=== PATIENT | female | born 1955 | race Two or more races ===

== ENCOUNTER 2025-09-19 04:25 | Inpatient (IN) | payer MEDICAID ==
[~2025-09-19] VITALS: Ht 152.4 cm; Wt 68.0 kg
--- NOTE | 2025-09-19 04:46 | ED.PDOC ---
History of Present Illness HPI Comments 70-year-old female, with a history of asthma, presents to the ED with a chief complaint of inability to swallow as of last night. Patient has NKA but does use an inhaler at home for Asthma. Patient has no further complaints at this time and denies symptoms of ear pain, throat pain, fever, chills, N/V/D, or weakness. REVIEW OF SYSTEMS: General: No fever, no chills, or fatigue HEENT: + swollen lymph nodes. No sore throat, no earache, no congestion, no neck pain. Cardiac: No chest pain. No palpitations. Lungs: No shortness of breath, no cough. GI: No nausea, no vomiting, no diarrhea, no constipation, no abdominal pain : No dysuria, frequency, or urgency. No hematuria. Musculoskeletal: No joint pain , no joint swelling, no extremity edema. Skin: No rash, no itching. Neuro: No headache, no dizziness, no weakness (And as sated in HPI) PHYSICAL EXAM: General: Awake, alert and oriented. No acute distress. Skin: Skin in warm, dry and intact. Appropriate color for ethnicity. HEENT: + swollen lymph nodes. + posterior pharyngeal edema. No stridor, no drooling, managing secretions. The head is normocephalic and atraumatic. Conju nctivae are clear without exudates or hemorrhage. Sclera is non-icteric. Eyelids are normal in appearance without swelling or lesions. Neck: The neck is supple with normal range of motion. No JVD. Cardiac: Heart rate and rhythm are normal. No murmurs, gallops, or rubs are auscultated. Respiratory: No signs of respiratory distress. Lung sounds are clear in all lobes bilaterally without rales, rhonchi, or wheezes. Abdominal: Abdomen is soft, non-tender without distention, guarding or rigidity. Bowel sounds are present and normoactive in all four quadrants. Extremities: Lower extremities without edema. Neurological: The patient is awake, alert and oriented to person, place, and time with normal speech. Speech is clear. There is no facial asymmetry. Psychiatric: Appropriate mood and affect. Good judgement and insight. Time Seen by MD: 04:37 Reviewed Notes: Medications, Allergies Allergies: Coded Allergies: NO KNOWN ALLERGIES (Unverified , 09/19/25) Information Source: Patient Mode of Arrival: Ambulatory Severity: Moderate Timing: Hours Duration: Since onset Past Medical History PAST MEDICAL HISTORY: Asthma Surgical History: Denies all surgeries INSURANCE EXECUTIVE History: No Pertinent INSURANCE EXECUTIVE History Social History Smoker: Non-Smoker Alcohol: Denies ETOH Use Drugs: Denies Drug Use Lives In: Home Was a procedure done? Was a procedure done?: No Differential Dx Considerations may include: Differential diagnoses considered includebut arenot limited to acute Bronchitis, Asthma, COPD, Pneumothorax, PE, CHF, Pulmonary HTN, Anemia, CO Poisoning, Methemoglobinemia, Hyperventilation, Metabolic Acidosis, Pulmonary E cristian, Pneumonia, ACS, Pericardial Tamponade, Anxiety, other X-Ray, Labs, Meds, VS Vital Signs Date Time Temp Pulse Resp B/P (MAP) Pulse Ox O2 Delivery O2 Flow Rate FiO2 09/19/25 05:39 Room Air* 0 21 09/19/25 05:10 98.6 106 18 142/68 (92) 96 98.6 09/19/25 04:42 16 99 Room Air* 0 21 09/19/25 04:42 97.2 114 16 178/90 99 97.2 Current Medications Medications (Trade) Dose Ordered Sig/Ravi Route Start Time Stop Time Status Last Admin Methylprednisolone Sodium Succinate (Solu Medrol) 80 mg ONCE ONCE IV 09/19/25 04:45 09/19/25 04:46 DC 09/19/25 05:28 Time of 1ST Reevaluation: 05:18 Reevaluation 1ST: Unchanged Patient Education/Counseling: Diagnosis, Treatment Family Education/Counseling: No Family Present SEPSIS Sepsis Screen Physician Orders Neck Without Contrast (09/19/25 04:41) Rapid Strep Screen - Throat (09/19/25 04:45) Basic Metabolic Panel (09/19/25 04:45) Complete Blood Count (09/19/25 04:45) Vital Signs Date Time Temp Pulse Resp B/P (MAP) Pulse Ox O2 Delivery O2 Flow Rate FiO2 09/19/25 05:39 Room Air* 0 21 09/19/25 05:10 98.6 106 18 142/68 (92) 96 98.6 09/19/25 04:42 16 99 Room Air* 0 21 09/19/25 04:42 97.2 114 16 178/90 99 97.2 Medications Medications Dose Ordered Sig/Ravi Route Start Time Stop Time Status Last Admin Dose Admin Methylprednisolone Sodium Succinate 80 mg ONCE ONCE IV 09/19/25 04:45 09/19/25 04:46 DC 09/19/25 05:28 Departure 1 Departure Time of Disposition: 05:54 Impression: Primary Impression: Difficulty swallowing Additional Impression: Difficulty swallowing liquids Disposition: 09 ADMITTED INPATIENT Comments 70 female with sudden onset, worsening difficulty swallowing. She is having difficulty swallowing her saliva. IV steroid administered. Currently no stridor or airway compromise on exam. CT neck shows no abscess. Given rapid onset of symptoms patient admitted for further observation. Critical Care Note Critical Care Time?: No Stability Stability form required: No Heart Score Heart Score: Heart Score Response (Comments) Value History N/A 0 EKG N/A 0 Age N/A 0 Risk Factors N/A 0 Troponin N/A 0 Total 0 I personally scribed for AMELIA SANTORO MD ([email or web address]) on 09/19/25 at 04:46. Electronically submitted by Laurie Story ([email or web address]). AMELIA SANTORO MD Sep 19, 2025 04:46
[2025-09-19] MEDS: methylPREDNISolone SOD SUCC 125 MG/2 ML VL IV ONE (05:28)
--- NOTE | 2025-09-19 05:52 | DVH ---
Accession Number: [id number] CLINICAL HISTORY: Difficulty swallowing, rule out abscess. COMPARISON: None. TECHNIQUE: CT scan of the neck was performed without intravenous contrast. Coronal sagittal reformatted images are submitted. Radiation Dose Information: CT Dose: CTDI volume is 22.99 mGy. Dose-length product is 592.56 mGy*cm FINDINGS: Evaluation is limited without intravenous contrast. The nasopharynx, oropharynx, hypopharynx, esophagus, and larynx demonstrate no space-occupying lesion or obvious fluid collection. The submandibular and sublingual glands are symmetric in size. No calcification. Subcentimeter nodular foci noted in both parotid glands which may reflect Subcentimeter lymph nodes. The visualized oral tongue, tongue base, and floor of mouth regions appear to be grossly unremarkable within the limitations of unenhanced CT. No cervical lymphadenopathy. Nodular thyroid. Bones are intact. IMPRESSION: 1. Limited noncontrast study. No inflammatory changes or obvious fluid collection. 2. Nodular thyroid can be further evaluated with ultrasound.
[2025-09-19 07:23] LABS: Hemoglobin 13.5 g/dL (12.2-16.2); Nucleated Red Blood Cells % 0.0 %
[2025-09-19 07:26] LABS: Hematocrit 41.3 % (36.0-46.0); Mean Corpuscular Hemoglobin 24.8 pg (28.0-32.0); Mean Corpuscular Volume 76.2 fL (80.0-100.0)
[2025-09-19 07:28] LABS: Anion Gap 10 (5-15); Calcium 9.9 mg/dL (8.7-10.4); Carbon Dioxide 28 mmol/L (20-31)
[2025-09-19 07:30] LABS: Chloride 96 mmol/L (98-107); Potassium 3.4 mmol/L (3.5-5.1); Sodium 134 mmol/L (136-145)
[2025-09-19 07:33] LABS: BUN/Creatinine Ratio 19.5 (10.0-20.0); Blood Urea Nitrogen 8 mg/dL (9-23); Glucose 150 mg/dL (74-106)
[2025-09-19 07:58] LABS: Rapid Strep A Screen-Throat Negative
--- NOTE | 2025-09-19 08:35 | DVHHP2 ---
History of Present Illness Reason for Visit: Difficulty swallowing History of Present Illness Yung Gracia is a 70-year-old female with past medical history of asthma, diabetes, hypertension, and hyperlipidemia, who came to the hospital for difficulty swallowing. Patient states that she has had an upset stomach with nausea and diarrhea for the last 2 days as well as headaches. She states that last night she began to have a sore throat. She then woke up about early this morning with difficulty swallowing her own spit. This prompted her to come to the hospital. The ER gave her IV steroids that she said seems to be helping. She was able to pass a nursing swallow evaluation. Cardiovascular: HTN, hyperipidemia Pulmonary: Asthma Endocrine: Diabetes Past Surgical History: Appendectomy, Hernia Repair, Other (left breast lumpectomy) Smoke: No ALCOHOL: none Drugs: None Lives: with Family Domestic Violence: Neg Review of Systems Constitutional: Yes: Malaise, Other (Headache); No: Fever, Chills, Sweats, Weakness Eyes: No: Pain, Vision change, Conjunctivae inflammation, Eyelid inflammation, Other, Redness ENT: Throat pain, Throat swelling; No: Ear pain, Ear discharge, Nose pain, Nose discharge, Nose congestion, Mouth pain, Mouth swelling, Other Respiratory: No: Cough, Dry, Shortness of breath, SOB with excertion, Wheezing, Hemoptysis, Pleuritic Pain, Sputum, Wheezing, Other Cardiovascular: No: Chest Pain, Palpitations, Orthopnea, Paroxysmal Noc. Dyspnea, Edema, Lt Headedness, Other Gastrointestinal: Nausea, Diarrhea; No: Vomiting, Abdominal Pain, Constipation, Melena, Hematochezia, Other Genitourinary: No Dysuria, No Frequency, No Incontinence, No Hematuria, No Retention, No Other Musculoskeletal: No: other, neck pain, shoulder pain, arm pain, back pain, hand pain, leg pain, foot pain Skin: No: Rash, Lesions, Jaundice, Bruising, Other Neurological: No: Weakness, Numbness, Incoordination, Change in speech, Confusion, Seizures, Other Allergies: Coded Allergies: NO KNOWN ALLERGIES (Unverified , 09/19/25) Exam Vital Signs Vital Signs Date Time Temp Pulse Resp B/P (MAP) Pulse Ox O2 Delivery O2 Flow Rate FiO2 09/19/25 07:36 98.3 97 16 151/81 (104) 98 98.3 09/19/25 05:39 Room Air* 0 21 General Appearance: Alert, Oriented X3, Cooperative, mild distress HEENT: Atraumatic, PERRLA, Other (Mucous membr dry) Respiratory: Clear to auscultation, Normal air movement Cardiovascular: Normal S1, Normal S2, Other (ST-SR) Abdominal: Normal bowel sounds, Soft, No tenderness, No hepatospenomegaly Extremities: No clubbing, No cyanosis, No edema, Normal pulses, No tenderness/swelling Skin: No rashes, No breakdown, No significant lesion Neuro: Normal gait, Normal speech, Strength at 5/5 X4 ext, Normal tone, S ensation intact Psych/Mental Status: Mental status NL, Mood NL Labs/Xrays Labs Test 09/19/25 07:26 09/19/25 06:58 Range/Units Group A Streptococcus Rapid Negative White Blood Count 12.0 H 4.4-10.8 10^3/uL Red Blood Count 5.43 H 4.0-5.20 10^6/uL Hemoglobin 13.5 12.2-16.2 g/dL Hematocrit 41.3 36.0-46.0 % Mean Corpuscular Volume 76.2 L 80.0-100.0 fL Mean Corpuscular Hemoglobin 24.8 L 28.0-32.0 pg Mean Corpuscular Hemoglobin Concent 32.6 32.0-36.0 g/dL Red Cell Distribution Width 15.1 H 11.8-14.3 % Platelet Count 327 140-450 10^3/uL Mean Platelet Volume 7.1 6.9-10.8 fL Neutrophils (%) (Auto) 83.7 H 37.0-80.0 % Lymphocytes (%) (Auto) 12.6 10.0-50.0 % Monocytes (%) (Auto) 2.8 0.0-12.0 % Eosinophils (%) (Auto) 0.2 0.0-7.0 % Basophils (%) (Auto) 0.7 0.0-2.0 % Neutrophils # (Auto) 10.1 H 1.6-8.6 10 ^3/uL Lymphocytes # (Auto) 1.5 0.4-5.4 10 ^3/uL Monocytes # (Auto) 0.3 0-1.3 10 ^3/uL Eosinophils # (Auto) 0 0-0.8 10 ^3/uL Basophils # (Auto) 0.1 0-0.2 10 ^3/uL Nucleated Red Blood Cells 0.0 % Sodium Level 134 L 136-145 mmol/L Potassium Level 3.4 L 3.5-5.1 mmol/L Chloride Level 96 L 98-107 mmol/L Carbon Dioxide Level 28 20-31 mmol/L Anion Gap 10 5-15 Blood Urea Nitrogen 8 L 9-23 mg/dL Creatinine 0.41 L 0.550-1.02 mg/dL Glomerular Filtration Rate Calc 106 >90 mL/min BUN/Creatinine Ratio 19.5 10.0-20.0 Serum Glucose 150 H 74-106 mg/dL Calcium Level 9.9 8.7-10.4 mg/dL TECHNIQUE: CT scan of the neck was performed without intravenous contrast. FINDINGS: Evaluation is limited without intravenous contrast. The nasopharynx, oropharynx, hypopharynx, esophagus, and larynx demonstrate no space-occupying lesion or obvious fluid collection. The submandibular and sublingual glands are symmetric in size. No calcification. Subcentimeter nodular foci noted in both parotid glands which may reflect Subcentimeter lymph nodes. The visualized oral tongue, tongue base, and floor of mouth regions appear to be grossly unremarkable within the limitations of unenhanced CT. No cervical lymphadenopathy. Nodular thyroid. Bones are intact. IMPRESSION: 1. Limited noncontrast study. No inflammatory changes or obvious fluid collection. 2. Nodular thyroid can be further evaluated with ultrasound. SEPSIS Sepsis Screen Date sepsis recognized/suspect: Sep 19, 2025 Time Sepsis recognized/suspect: 042 Recent Procedure: No On Antibiotic Therapy: No Respiratory Rate >20: No Heart Rate >90: Yes Temp<36 C (96.8 F) or >38.3 C: No SBP <90 or MAP <65 mmHG: No New Acute Mental Status Change: No Is the patient on CPAP, BIPAP,: No Physician Orders Neck Without Contrast (09/19/25 04:41) Vital Signs Q1HR (09/19/25 05:56) Blood Pressure (09/19/25 ) Blood Pressure (09/20/25 ) Notify Md If Abnormal Vs (09/19/25 05:56) Agricultural Service Worker (09/19/25 ) Saline Lock (09/19/25 05:56) Continous Pulse Oximetry (09/19/25 05:56) Oxygen (09/19/25 ) Titrate Oxygen (09/19/25 05:56) Vital Signs Q1HR (09/19/25 05:56) Notify Md If Abnormal Vs (09/19/25 05:56) Vital Signs Date Time Temp Pulse Resp B/P (MAP) Pulse Ox O2 Delivery O2 Flow Rate FiO2 09/19/25 07:36 98.3 97 16 151/81 (104) 98 98.3 09/19/25 05:39 Room Air* 0 21 09/19/25 05:10 98.6 106 18 142/68 (92) 96 98.6 09/19/25 04:42 16 99 Room Air* 0 21 09/19/25 04:42 97.2 114 16 178/90 99 97.2 Laboratory Tests Test 09/19/25 06:58 White Blood Count 12.0 10^3/uL (4.4-10.8) H Medications Medications Dose Ordered Sig/Ravi Route Start Time Stop Time Status Last Admin Dose Admin Methylprednisolone Sodium Succinate 80 mg ONCE ONCE IV 09/19/25 04:45 09/19/25 04:46 DC 09/19/25 05:28 80 MG Assessment/Plan Assessment/Plan Assessment: Difficulty swallowing liquids, Thyroid nodules, Asthma, Diabetes, Hypertension, Hyperlipidemia, Plan: Admit to Med-Surg, IV antibiotics, IV steroids, IV hydration, Accu checks with sliding scale insulin, Home medications reconciled, Plan discussed with: Patient Date of Service: Sep 19, 2025 Billing Provider: SHWETHA ANTHONY Common Visit Codes: [id number] INP/OBS CARE (MOD) SHWETHA ANTHONY Sep 19, 2025 08:35
[2025-09-19] MEDS ORDERED: ONDANSETRON HCL 4 MG/2 ML VIAL IV PRN (08:45)
[2025-09-19] MEDS ORDERED: HYDROcodone-ACET 5/325MG TAB PO PRN (08:45)
[2025-09-19] MEDS ORDERED: DOCUSATE SOD 100 MG CAP PO PRN (08:45)
[2025-09-19] MEDS ORDERED: ACETAMINOPHEN 325 MG TAB PO PRN (08:45)
[2025-09-19] MEDS: SODIUM CHLORIDE 0.9% 1,000 ML IV ONE (09:06)
[2025-09-19 10:06] LABS: COVID19 ANTIGEN SOFIA FIA NEGATIVE (NEGATIVE)
[2025-09-19 11:05] LABS: Urine Protein, UAD Negative (Negative)
[2025-09-19 11:08] VITALS: BP 145/71; PULSE 98; RESP 16; TEMP 97.9; O2SAT 96
[2025-09-19] MEDS ORDERED: AML5T PO (11:21)
[2025-09-19] MEDS ORDERED: LOSA-535 PO (11:21)
[2025-09-19] MEDS ORDERED: ALBUAER3 IN (11:21)
[2025-09-19] MEDS ORDERED: ATOR10TA52 PO (11:21)
[2025-09-19] MEDS ORDERED: MONT-8 PO (11:21)
[2025-09-19] MEDS ORDERED: METF-370 PO (11:21)
[2025-09-19] MEDS ORDERED: HYDR25TA4 PO (11:21)
[2025-09-19] MEDS ORDERED: TIOTCAP IN (11:21)
[2025-09-19] MEDS: InsuLIN REG 1unit/0.01ml Soln (100units/ml) SC SCH (11:30)
[2025-09-19] MEDS ORDERED: DEXTROSE (50%) 50ML SYRG IV PRN (11:30)
[2025-09-19] MEDS: ACCU-CHEK COMFORT CURVE STRIP VI SCH (11:30)
[2025-09-19] MEDS ORDERED: MAA30LQ GT (11:39)
[2025-09-19] MEDS ORDERED: PANT40TA2 PO (11:39)
[2025-09-19] MEDS ORDERED: TIOT1AER2 INH (11:40)
--- NOTE | 2025-09-19 11:42 | DVHDS2 ---
Discharge Summary Date of Admission Sep 19, 2025 at 08:32 Date of Discharge: Sep 19, 2025 Labs/Diagnostic Data: Laboratory Results Test 09/19/25 10:03 09/19/25 08:39 09/19/25 07:26 09/19/25 06:58 Urine Color Light-yellow (Yellow) Urine Clarity Clear (Clear) Urine pH 8.0 (5.0-9.0) Urine Specific [place] 1.015 (1.001-1.035) Urine Protein Negative (Negative) Urine Ketones Negative (Negative) Urine Blood Negative /uL (Negative) Urine Nitrite Negative (Negative) Urine Bilirubin Negative (Negative) Urine Urobilinogen Normal mg/dL (Negative) Urine Leukocyte Esterase Negative /uL (Negative) Urine RBC 2 /hpf (0 - 4) Urine Microscopic WBC < 1 /HPF (0-5) Urine Squamous Epithelial Cells Few /hpf (<5) Urine Bacteria None seen /hpf (None Seen) Urine Glucose Normal mg/dL (Normal) Influenza Type A Antigen Negative (Negative) Influenza Type B Antigen Negative (Negative) SARS-CoV-2 Antigen (Rapid) Negative (NEGATIVE) Group A Streptococcus Rapid Negative White Blood Count 12.0 10^3/uL (4.4-10.8) Red Blood Count 5.43 10^6/uL (4.0-5.20) Hemoglobin 13.5 g/dL (12.2-16.2) Hematocrit 41.3 % (36.0-46.0) Mean Corpuscular Volume 76.2 fL (80.0-100.0) Mean Corpuscular Hemoglobin 24.8 pg (28.0-32.0) Mean Corpuscular Hemoglobin Concent 32.6 g/dL (32.0-36.0) Red Cell Distribution Width 15.1 % (11.8-14.3) Platelet Count 327 10^3/uL (140-450) Mean Platelet Volume 7.1 fL (6.9-10.8) Neutrophils (%) (Auto) 83.7 % (37.0-80.0) Lymphocytes (%) (Auto) 12.6 % (10.0-50.0) Monocytes (%) (Auto) 2.8 % (0.0-12.0) Eosinophils (%) (Auto) 0.2 % (0.0-7.0) Basophils (%) (Auto) 0.7 % (0.0-2.0) Neutrophils # (Auto) 10.1 10 ^3/uL (1.6-8.6) Lymphocytes # (Auto) 1.5 10 ^3/uL (0.4-5.4) Monocytes # (Auto) 0.3 10 ^3/uL (0-1.3) Eosinophils # (Auto) 0 10 ^3/uL (0-0.8) Basophils # (Auto) 0.1 10 ^3/uL (0-0.2) Nucleated Red Blood Cells 0.0 % Sodium Level 134 mmol/L (136-145) Potassium Level 3.4 mmol/L (3.5-5.1) Chloride Level 96 mmol/L (98-107) Carbon Dioxide Level 28 mmol/L (20-31) Anion Gap 10 (5-15) Blood Urea Nitrogen 8 mg/dL (9-23) Creatinine 0.41 mg/dL (0.550-1.02) Glomerular Filtration Rate Calc 106 mL/min (>90) BUN/Creatinine Ratio 19.5 (10.0-20.0) Serum Glucose 150 mg/dL (74-106) Calcium Level 9.9 mg/dL (8.7-10.4) Other Laboratory Tests 09/19/25 06:58 Brief Hx & Hospital Course: 70 F with GERD comes with 1 night of difficulty swallowing saliva. able to swallow water, food, no food stuck sensation, no pain, no weight loss. bedside given water, swallows noramlly, no cough. reported reflux sx past week. stable to dc with protonix, maaox. f/u pcp Condition at Discharge: Stable Final Diagnosis/Problems List GERD dysphagia resolved 2/2 dry mouth thyroid lumps Discharge Disposition: Home Discharge Instruct/Medications Diet: Regular Activity: No Restrictions, As Tolerated Follow Up/Referral: pcp Medications: protonix maalox Scheduled Alum & Mag Hydrox-Simethicone (Maalox Plus), 30 ML GT Q6H Amlodipine Besylate (Norvasc Tablet), 1 TAB PO DAILY, (Reported) Atorvastatin Calcium (Atorvastatin Calcium), 1 TAB PO DAILY, (Reported) Hydrochlorothiazide (Hydrochlorothiazide), 1 TAB PO DAILY, (Reported) Losartan Potassium (Losartan Potassium), 1 TAB PO DAILY, (Reported) Metformin Hydrochloride (Metformin Hcl), 1 TAB PO BID, (Reported) Montelukast Sodium (Montelukast Sodium), 1 TAB PO DAILY, (Reported) Pantoprazole Sodium Sesquihydr (Protonix), 40 MG PO DAILY Tiotropium Beeler Monohydrate (Spiriva Respimat), 2 PUFF INH DAILY, (Reported) Miscellaneous Medications Albuterol Sulfate (Ventolin Mdi), 90 MCG IN, (Reported) Tiotropium Beeler Monohydrate (Spiriva Handihaler), 18 MCG IN, (Reported) Discharge Statement: "Patient was advised to return to the ER or call 911 if any headaches, dizziness, shortness of breath, chest pain, abdominal pain, bleeding, fevers, or worsening of medical condition. Patient was counseled about treatment plan, medications, possible side effects, patientverbalized understanding. All questions were answered to the best of my ability. This discharge took greater then 30 minutes in planning, reviewing documentation, counseling the patient, and discussing with other team members." ASSESSMENT ASSESSMENT Assessment GERD dysphagia resolved 2/2 dry mouth thyroid lumps Date of Service: Sep 19, 2025 Billing Provider: SHELLEY RESENDEZ MD Common Visit Codes: 50616-IPM/OBS DISCH DAY >30min SHELLEY RESENDEZ MD Sep 19, 2025 11:42
[2025-09-19] MEDS ORDERED: InsuLIN REG 1unit/0.01ml Soln (100units/ml) SC SCH (22:00)
[2025-09-19] MEDS ORDERED: methylPREDNISolone SOD SUCC 40 MG/ML VL IV SCH (22:00)
[2025-09-20] MEDS ORDERED: hydroCHLOROthiazide 25 MG TAB PO SCH (10:00)
[2025-09-20] MEDS ORDERED: MONTELUKAST SODIUM 10 MG TAB PO SCH (10:00)
[2025-09-20] MEDS ORDERED: LOSARTAN POTASSIUM 50 MG TAB PO SCH (10:00)
[2025-09-20] MEDS ORDERED: ATORVASTATIN 20 MG TAB PO SCH (22:00)
== END 2025-09-19 12:00 | disposition home or self-care (01) | DRG 115 ==
LOC: ER 04:25 → OVERFLOW 08:32
PROVIDERS: ADMIT Student in an Organized Health Care Education/Training Program; ATTEND Student in an Organized Health Care Education/Training Program
DX: R68.2 Dry mouth, unspecified (principal); R13.10 Dysphagia, unspecified; J45.909 Unspecified asthma, uncomplicated; E04.2 Nontoxic multinodular goiter; E11.9 Type 2 diabetes mellitus without complications; I10 Essential (primary) hypertension; E78.5 Hyperlipidemia, unspecified; K21.9 Gastro-esophageal reflux disease without esophagitis; Z90.49 Acquired absence of other specified parts of digestive tract
CPT/HCPCS: 36415; 70490; 80048; 81001; 85025; 87070; 87426; 87804; 87880; 96365; 96375; G0378